=== PATIENT | male | born 1975 | race African-American/Black ===

== ENCOUNTER 2018-11-28 09:46 | Emergency (ER) | payer OTHER ==
[~2018-11-28] VITALS: Ht 172.7 cm; Wt 70.5 kg
[2018-11-28 10:01] VITALS: BP 123/83
[2018-11-28] MEDS ORDERED: CIPRO 500MG TA500 MG PO (12:19)
[2018-11-28 12:39] VITALS: PULSE 60; TEMP 97.7
== END 2018-11-28 12:39 | disposition home or self-care (01) ==
LOC: COL.ER 09:46
DX: R19.7 Diarrhea, unspecified (principal)